=== PATIENT | female | born 1950 | race Caucasian/White ===

== ENCOUNTER → 2021-04-07 | Day surgery (SDC) | payer MEDICARE ==
[~2021-04-07] VITALS: Ht 162.6 cm; Wt 68.0 kg
[~2021-04-07] MED LIST: ALBU0.63 NEB; BUDE10.22 IH; IV RINGERS,LACTATED 1000ML 1,000 ML IV SCH; LEVO100T5 PO; LIDOCAINE 2% PF 5 ML VIAL. ONE; MONT10TA49 PO; PRIM50TA24 PO; PROPOFOL 10 MG/ML (20ML) VIAL. IV ONE; ePHEDrine PF IN SALINE 50 MG/10 ML SYRINGE. IV ONE
[2021-04-07 12:55] VITALS: BP 133/65
--- NOTE | 2021-04-07 14:23 | PDOC4 ---
PROCEDURE Procedure EGD/biopsies/dilation, colonoscopy/biopsies/polypectomies Indication: dysphagia/screening. Meds: per anesthesia Findings: E--Mild Shatzki's at 35cm; dilated with 48, nil resistance. G--Small HH. Patchy antral erythema, biopsied. One AVM lesser curve body. D--Normal to second portion. RACHANA--normal --Scope advanced to cecum, prep adequate, mucosa normal. Occasional diverticulum throughout. --6mm polyp, hepatic flexure, biopsied off. --5mm polyp, mid-transverse, biopsied off. --12mm semipedunculated polyp, distal descending, snared piecemeal. --10mm pedunculated polyp, proximal sigmoid, snared. Internal hemorrhoids on retroflex with minor bleeding. Lacey. well. IMP: Shatzki's, dilated. HH Antral erythema, biopsies Diverticulosis Multiple polyps Internal hemorrhoids. REC: Await path. No ASA, NSAIDs for 2 weeks. Resume other meds and diet. F/u with me in 2 weeks. Repeat colonoscopy pending path; likely 5 years if still relatively healthy. UNA GARCIA MD Apr 07, 2021 14:23
[2021-04-07 15:55] VITALS: BP 121/78
== END | disposition home or self-care (01) ==
LOC: SURG 11:53
PROVIDERS: ATTEND Internal Medicine Gastroenterology
DX: K59.00 Constipation, unspecified (principal); K44.9 Diaphragmatic hernia without obstruction or gangrene; R13.10 Dysphagia, unspecified; E66.3 Overweight; K57.30 Diverticulosis of large intestine without perforation or abscess without bleeding; K63.5 Polyp of colon; K64.0 First degree hemorrhoids; K63.89 Other specified diseases of intestine; K31.89 Other diseases of stomach and duodenum; I10 Essential (primary) hypertension; J43.9 Emphysema, unspecified; M19.90 Unspecified osteoarthritis, unspecified site; Z79.899 Other long term (current) drug therapy; Z98.890 Other specified postprocedural states; Z72.89 Other problems related to lifestyle; Z88.0 Allergy status to penicillin; Z20.822 Contact with and (suspected) exposure to COVID-19
CPT/HCPCS: 43239; 43450; 45380; 45385; 87426; 88305; 88342; J2704; 45384